=== PATIENT | male | born 1930 | race Hispanic/Latino ===

== ENCOUNTER 2017-12-26 13:43 | Inpatient (IN) | payer OTHER ==
[~2017-12-26] VITALS: Ht 157.5 cm; Wt 81.6 kg
[2017-12-26 14:37] LABS: HEMATOCRIT 43.9 % (38.0-50.0); HEMOGLOBIN 15.3 G/DL (12.5-16.6); MCH 32.3 PG (29.0-34.0); MCHC 34.9 G/DL (30.0-36.0); MCV 92.8 FL (86-99); PLATELET COUNT 275 K/uL (156-360); RBC DIS.WIDTH-CV 13.3 % (11.8-14.6); RBC DIS.WIDTH-SD 46.1 % (39-53); RED BLOOD COUNT 4.73 M/uL (4.00-5.50); WHITE BLOOD COUNT 9.5 K/uL (4.1-10.2)
[2017-12-26 14:45] LABS: CHLORIDE 99 mEq/L (99-109); POTASSIUM 4.3 mEq/L (3.7-5.4); SODIUM 135 mEq/L (136-147)
[2017-12-26 14:47] LABS: GLUCOSE 106 mg/dL (70-99)
[2017-12-26 14:51] LABS: CREATININE 0.8 mg/dL (0.6-1.3); GFR ESTIMATE (CALCULATED) > 59 mL/min/ (58.99-99999)
[2017-12-26 14:52] LABS: UREA NITROGEN (BUN) 15 mg/dL (9-23)
[2017-12-26 15:02] LABS: TROP-I INTERPRETATION NEGATIVE; TROPONIN-I < 0.01 ng/mL (0.0-0.30)
[2017-12-26] MEDS ORDERED: DOXYCYCLINE HY100 MG PO (20:04)
[2017-12-26] MEDS ORDERED: [UNRECOGNIZED DRUG - OTHER] PO (20:05)
[2017-12-26 23:58] VITALS: BP 140/80
[2017-12-27] VITALS (7 sets, daily range): BP systolic 92–116; BP diastolic 50–64
[2017-12-27 06:51] LABS: CHLORIDE 103 MEQ/L (99-109); CREATININE 0.8 MG/DL (0.6-1.3); GFR ESTIMATE (CALCULATED) > 59 mL/min/ (58.99-99999); GLUCOSE 105 mg/dL (70-99); POTASSIUM 4.2 MEQ/L (3.7-5.4); SODIUM 138 MEQ/L (136-147); UREA NITROGEN (BUN) 18 mg/dL (9-23)
[2017-12-27 07:07] LABS: BASOPHIL (%) 0.3 % (0-1); EOSINOPHIL (%) 0.5 % (0-5); HEMATOCRIT 38.3 % (38.0-50.0); IMMATURE GRANULOCYTE (%) 0.4 % (0.0-0.7); LYMPHOCYTE (%) 8.1 % (15-42); LYMPHOCYTE COUNT 0.6 K/uL (1.0-2.8); MCH 31.6 PG (29.0-34.0); MCHC 33.4 G/DL (30.0-36.0); MCV 94.6 FL (86-99); MONOCYTE (%) 9.6 % (3-12); MONOCYTE COUNT 0.7 K/uL (0-0.8); NEUTROPHIL (%) 81.1 % (45-76); PLATELET COUNT 246 K/uL (156-360); RBC DIS.WIDTH-CV 13.5 % (11.8-14.6); RBC DIS.WIDTH-SD 47.5 % (39-53); RED BLOOD COUNT 4.05 M/uL (4.00-5.50); WHITE BLOOD COUNT 7.4 K/uL (4.1-10.2)
[2017-12-27 07:11] LABS: HEMOGLOBIN 12.8 G/DL (12.5-16.6)
[2017-12-28 03:57] VITALS: BP 120/58
[2017-12-28 07:54] VITALS: BP 145/86
[2017-12-28 12:12] VITALS: BP 134/68
[2017-12-28] MEDS ORDERED: ZITHROMAX500 MG PO (15:09)
[2017-12-28] MEDS ORDERED: CEFTIN500 MG PO (15:10)
[2017-12-28] MEDS ORDERED: PROAIR RESPICL90 MCG IH (15:10)
[2017-12-28] MEDS ORDERED: GUAIFENESI100 MG/5 M PO (15:12)
== END 2017-12-28 16:00 | disposition home or self-care (01) | DRG 194 ==
LOC: EME 13:43 → EDOF 22:20 → 5SOUTH 22:20 → ENRESERV 22:21 → 5SOUTH 23:41
PROVIDERS: Emergency Medicine; Internal Medicine
DX: J15.9 Unspecified bacterial pneumonia (principal); E86.0 Dehydration; E87.1 Hypo-osmolality and hyponatremia; J98.11 Atelectasis; R09.02 Hypoxemia; R26.2 Difficulty in walking, not elsewhere classified; M25.512 Pain in left shoulder; Z87.891 Personal history of nicotine dependence
CPT/HCPCS: 71046; 71275; 73030; 80048; 83605; 84484; 85025; 85027; 87040; 87070; 87205; 87449; 92610 GN; 93005; 94640; 94640 76; 94799; 99202; 99281; 99285; J0295; J0456; J1644; J7030; J7050; J7512